=== PATIENT | male | born 1950 | race Caucasian/White ===

== ENCOUNTER 2021-02-24 16:08 | Observation (INO) | payer OTHER ==
--- OUTSIDE RECORDS SUMMARY | 2021-02-24 16:12 | XMS REPORT | Continuity of Care Document ---
:1950 Author Organization [facility] t Address [address] [place] [address] Care Team Providers Name Role Phone Unavailable Unavailable Unavailable Problems This patient has no known problems. Allergies, Adverse Reactions, Alerts This patient has no known allergies or adverse reactions. Medications This patient has no known medications. Procedures This patient has no known procedures. Encounters Start End Encounter Admission Attending Care Care Encounter Source Date/Time Date/Time Type Type Clinicians Facility Department ID 2020 2020 Outpatient [facility] [id number] [facility]00[facility]00 [facility] 2020 2020 Outpatient [facility] [id number] [facility] 2020-10-30 2020-10-30 Outpatient [facility] [id number] [facility] 2020-10-30 2020-10-30 Outpatient [facility] [id number] [facility] 2020-10-23 2020-10-23 Outpatient [facility] [id number] [facility] 2020-10-05 2020-10-05 Outpatient [facility] [id number] [facility] 2020-10-04 2020-10-04 Outpatient [facility] [id number] [facility]00 [facility] 2020-09-26 2020-09-26 Outpatient [facility] [id number] [facility]00 [facility] Results This patient has no known results.
[2021-02-24] MEDS ORDERED: LIDOCAINE 1% MPF 5 ML VIAL ONE (17:34)
--- NOTE | 2021-02-24 17:54 | EDPHYS ---
Physician Documentation [facility] Name: Maco House III Age: 70 yrs Sex: Male : 1950 Arrival Date: 02/24/2021 Time: 16:10 Bed 23 Private MD: ED Physician Joselin Baptiste HPI: 02/24 17:41 This 70 yrs old Male presents to ER via Ambulatory with complaints of sp3 Syncope, Doesn't Feel Right. 17:45 70-year-old male with no significant past medical history presents for chief complaint sp3 syncope which occurred just prior to arrival. Patient states that he was having sex with his significant other and subsequent to that he laid in bed for a few minutes and subsequently got up and started having near syncope symptoms and an urge to use the restroom so he started walking towards the restroom and while inside as he was in the process of sitting on the commode had a full syncopal episode falling forward and striking the corner of the wall on the right side of his eye/face and falling to the floor. Patient's significant other was within immediate range and came in for immediate assistance. Upon arrival she states that he was slowly "coming to". Patient reports no headache, neck pain, chest pain, shortness of breath, fever, URI symptoms, known sick contacts, nausea, vomiting, diarrhea, abdominal pain, numbness, tingling, weakness, or any other ROS at this time.. Historical: - Allergies: 16:30 No Known Allergies; aa5 - Home Meds: 16:30 None [Active]; aa5 - PMHx: 16:30 Back pain; aa5 - PSHx: 16:30 eye; shoulder; aa5 16:31 Back sx; aa5 - Immunization history:: Client reports receiving the 2nd dose of the Covid vaccine. - Social history:: Smoking status: Patient denies any tobacco usage or history of. ROS: 17:47 Constitutional: Negative for fever, chills, and weight loss, Eyes: Negative for injury, sp3 pain, redness, and discharge, Neck: Negative for injury, pain, and swelling, Cardiovascular: Negative for chest pain, palpitations, and edema, Respiratory: Negative for shortness of breath, cough, wheezing, and pleuritic chest pain, Abdomen/GI: Negative for abdominal pain, nausea, vomiting, diarrhea, and constipation, Back: Negative for injury and pain, MS/Extremity: Negative for injury and deformity, Skin: Negative for injury, rash, and discoloration, Allergy/Immunology: Negative for hives, rash, and allergies, Endocrine: Negative for neck swelling, polydipsia, polyuria, polyphagia, and marked weight changes. 17:47 Neuro: Positive for loss of consciousness, syncope, Negative for altered mental status, dizziness, headache, hearing loss, speech changes, tingling, visual changes, weakness. Exam: 17:47 Constitutional: This is a well developed, well nourished patient who is awake, alert, sp3 and in no acute distress. Eyes: Pupils equal round and reactive to light, extra-ocular motions intact. Lids and lashes normal. Conjunctiva and sclera are non-icteric and not injected. Cornea within normal limits. Periorbital areas with no swelling, redness, or edema. ENT: Nares patent. No nasal discharge, no septal abnormalities noted. External auditory canals are clear. Oropharynx with no redness, swelling, or masses, exudates, or evidence of obstruction, uvula midline. Mucous membranes moist. Neck: Trachea midline, no thyromegaly or masses palpated, and no cervical lymphadenopathy. Supple, full range of motion without nuchal rigidity, or vertebral point tenderness. No Meningismus. Chest/axilla: Normal chest wall appearance and motion. Nontender with no deformity. No lesions are appreciated. Cardiovascular: Regular rate and rhythm with a normal S1 and S2. No gallops, murmurs, or rubs. Normal PMI, no JVD. No pulse deficits. Respiratory: Lungs have equal breath sounds bilaterally, clear to auscultation and percussion. No rales, rhonchi or wheezes noted. No increased work of breathing, no retractions or nasal flaring. Abdomen/GI: Soft, non-tender, with normal bowel sounds. No distension or tympany. No guarding or rebound. No evidence of tenderness throughout. Back: No spinal tenderness. No costovertebral tenderness. Full range of motion. Skin: Warm, dry with normal turgor. Normal color with no rashes, no lesions, and no evidence of cellulitis. MS/ Extremity: Pulses equal, no cyanosis. Neurovascular intact. Full, normal range of motion. Neuro: Awake and alert, GCS 15, oriented to person, place, time, and situation. Cranial nerves II-XII grossly intact. Motor strength 5/5 in all extremities. Sensory grossly intact. Cerebellar exam normal. Normal gait. Psych: Awake, alert, with orientation to person, place and time. Behavior, mood, and affect are within normal limits. 17:47 Head/face: Noted is a laceration(s), that is linear, See laceration note and procedure completed by physician regulatory assistant.. 17:48 ECG was reviewed by the Attending Physician. EKG demonstrates normal sinus rhythm at 81 sp3 bpm with normal intervals, RSR in lead III, normal axis, nonspecific ST/T changes diffuse. No signs of acute MA or STEMI noted. Vital Signs: 16:26 BP 145 / 91; Pulse 80; Resp 18 S; Temp 98.6(TE); Pulse Ox 96% on R/A; Weight 97.07 kg aa5 (R); Height 6 ft. 0 in. (182.88 cm) (R); 17:15 BP 166 / 97; Pulse 74; Resp 15; Pulse Ox 100% ; rb3 18:06 BP 138 / 80; Pulse 72; Resp 14; Pulse Ox 98% ; rb3 16:26 Body Mass Index 29.02 (97.07 kg, 182.88 cm) aa5 Laceration: 17:29 Wound Repair of 1cm ( 0.4in ) subcutaneous laceration to lateral aspect of right pm1 supraorbital ridge. Linear shaped.. Distal neuro/vascular/tendon intact. Anesthesia: Local anesthetic administered with 1 mls of 1% lidocaine. Wound prep: Extensive cleansing with hibiclenz by me, Wound irrigation with saline by me, Wound explored extensively, Copious irrigation. Skin closed with 5 6-0 Prolene using simple sutures and sterile technique. Dressed with Neosporin. Patient tolerated well. MDM: 16:48 Patient medically screened. sp3 17:50 Data reviewed: vital signs, nurses notes, EKG. ED course: Patient is stable currently. sp3 Unknown if his sexual activity was related to his syncope. Patient also has carotid plaques which will need to be addressed. I will order ultrasound as well. Do not believe he is having an acute coronary syndrome, CVA, sepsis, or any other critical finding at this time. Will admit for ACS rule out and possible further evaluation by the inpatient medical team. Patient will be placed in observation status. His laceration has been repaired. All questions have been answered and medicine team has been notified.. 02/24 16:48 Order name: Basic Metabolic Panel [facility] 02/24 16:48 Order name: CBC with Diff [facility] 02/24 16:48 Order name: Protime (+inr) [facility] 02/24 16:48 Order name: Ptt, Activated [facility] 02/24 16:48 Order name: Troponin (emerg Dept Use Only) [facility] 02/24 16:48 Order name: Hepatic Function [facility] 02/24 18:27 Order name: Basic Metabolic Panel; Complete Time: 18:50 EDMS 02/24 18:27 Order name: Liver (Hepatic) Function; Complete Time: 18:50 EDMS 02/24 18:42 Order name: CBC with Automated Diff; Complete Time: 18:50 EDMS 02/24 18:44 Order name: Protime (+INR); Complete Time: 18:50 EDMS 02/24 18:44 Order name: PTT, Activated Partial Thromb; Complete Time: 18:50 EDMS 02/24 23:16 Order name: Troponin I EDMS 02/25 03:11 Order name: CBC with Automated Diff [facility] 02/25 03:29 Order name: Comprehensive Metabolic Panel [facility] 02/24 16:48 Order name: CT Stroke Brain w/o Contrast [facility] 02/24 16:48 Order name: Stroke CXR 1 View [facility] 02/24 16:48 Order name: EKG; Complete Time: 21:17 [facility] 02/24 16:48 Order name: Cardiac monitoring; Complete Time: 17:35 [facility] 02/24 16:48 Order name: EKG - Nurse/Tech; Complete Time: 17:34 [facility] 02/24 16:48 Order name: IV Saline Lock; Complete Time: 18:03 [facility] 02/24 16:48 Order name: Labs collected and sent; Complete Time: 18:03 [facility] 02/24 16:48 Order name: NPO; Complete Time: 18:03 [facility] 02/24 16:48 Order name: O2 Per Protocol; Complete Time: 17:35 [facility] 02/24 17:57 Order name: CT; Complete Time: 18:50 EDMS 02/24 18:18 Order name: RAD; Complete Time: 18:50 EDMS 02/25 03:29 Order name: Lipid Profile [facility] 02/25 03:29 Order name: T4 Free [facility] 02/25 03:29 Order name: Thyroid Stimulating Hormone [facility] 02/25 10:06 Order name: US [facility] 02/24 16:48 Order name: O2 Sat Monitoring; Complete Time: 17:35 sp3 Administered Medications: 19:37 Drug: Tylenol 1000 mg Route: PO; jb4 Disposition: 02/26 08:59 Co-signature as Attending Physician, Joselin Baptiste MD I agree with the assessment and sp3 plan of care. Disposition Summary: 02/24/21 17:53 Hospitalization Ordered Hospitalization Status: Observation sp3 Condition: Stable sp3 Problem: new sp3 Symptoms: are resolved sp3 Bed/Room Type: Standard sp3 Provider: Theodore Johnson(02/24/21 17:54) la1 Location: [facility] ER HOLD(02/24/21 21:20) cg Room Assignment: ERHOLD-(02/24/21 21:20) cg Diagnosis - Carotid sinus syncope sp3 - Facial Laceration/ Laceration without foreign body of cheek and temporomandibular sp3 area Forms: - Medication Reconciliation Form sp3 - SBAR form sp3 Signatures: Dispatcher [employer] [facility] Jeni Garcia RN RN aa5 Pranay Santoyo, POLICE LIEUTENANT PATROL-C POLICE LIEUTENANT PATROL-Cla1 Lolita Nelson RN RN cg Jorge Davidson, BLEACH CHLORINATOR BLEACH CHLORINATOR pm1 Alpesh Brady RN RN jb4 Joselin Baptiste MD MD sp3 Pranay Santoyo la3 Corrections: (The following items were deleted from the chart) 02/24 17:54 17:53 Pranay Santoyo sp3 la1 21:20 17:53 Telemetry/MedSurg (observation) sp3 cg 21:20 17:53 sp3 cg
--- NOTE | 2021-02-24 17:54 | ER ---
Nurse's Notes [facility] Name: Maco House III Age: 70 yrs Sex: Male : 1950 Arrival Date: 02/24/2021 Time: 16:10 Bed 23 Private MD: Diagnosis: Carotid sinus syncope;Facial Laceration/ Laceration without foreign body of cheek and temporomandibular area Presentation: 02/24 16:26 Chief complaint: Patient states: "I was dreaming that I was taking my blood pressure aa5 and when I woke up I felt like something was really wrong, I felt like I needed to go to the restroom and all I remember was me turning around to sit on the toilet and nothing after that". Pt reports syncopal episode. Pt's found pt on bathroom floor and states "he was just waking up when I found him and very confused". Pt currently A\\T\\O x 4. Pt reports "feeling tired and anxious". Coronavirus screen: Client presents with at least one sign or symptom that may indicate coronavirus-19. Ebola Screen: Patient negative for fever greater than or equal to 101.5 degrees Fahrenheit, and additional compatible Ebola Virus Disease symptoms. Initial Sepsis Screen: Does the patient meet any 2 criteria? No. Patient's initial sepsis screen is negative. Does the patient have a suspected source of infection? No. Patient's initial sepsis screen is negative. Risk Assessment: Do you want to hurt yourself or someone else? Patient reports no desire to harm self or others. Onset of symptoms was February 24, 2021. 16:26 Method Of Arrival: Ambulatory aa5 16:26 Acuity: SANTOS 3 aa5 Historical: - Allergies: 16:30 No Known Allergies; aa5 - Home Meds: 16:30 None [Active]; aa5 - PMHx: 16:30 Back pain; aa5 - PSHx: 16:30 eye; shoulder; aa5 16:31 Back sx; aa5 - Immunization history:: Client reports receiving the 2nd dose of the Covid vaccine. - Social history:: Smoking status: Patient denies any tobacco usage or history of. Screenin:35 Abuse screen: Denies threats or abuse. Nutritional screening: No deficits noted. rb3 Tuberculosis screening: No symptoms or risk factors identified. Fall Risk Fall in past 12 months (25 points). No secondary diagnosis (0 pts). IV access (20 points). Ambulatory Aid- None/Bed Rest/Nurse Assist (0 pts). Gait- Normal/Bed Rest/Wheelchair (0 pts) Mental Status- Oriented to own ability (0 pts). Total Arredondo Fall Scale indicates High Risk Score (45 or more points). Fall prevention measures have been instituted. Side Rails Up X 2 Placed Close to Nursing Station 1:1 Attendant Assigned Frequent Obs/Assessments Occuring Family Present and informed to notify staff if the need to leave the bedside As available patient and family educated on Fall Prevention Program and Strategies. Assessment: 16:35 General: Pt. reports that him and his had just made love and when he went to the [facility] bathroom he felt like something was wrong and he passed out. He hit the right side of his face on the wall. Right eye has a small cut, bleeding is controlled and it is bruised.. Pain: Denies pain. Neuro: Level of Consciousness is awake, alert, obeys commands, Oriented to person, place, time, situation, Reports a syncopal episode Denies blurred vision headache. Cardiovascular: Patient's skin is warm and dry. Rhythm is regular. Respiratory: Airway is patent Respiratory effort is even, unlabored, Respiratory pattern is regular, symmetrical. GI: No signs and/or symptoms were reported involving the gastrointestinal system. : No signs and/or symptoms were reported regarding the genitourinary system. Derm: Bruising that is dark purple, on right eye. Musculoskeletal: Range of motion: intact in all extremities. 17:40 Reassessment: Patient appears in no apparent distress at this time. No changes from [facility] previously documented assessment. 18:06 Reassessment: Patient appears in no apparent distress at this time. Patient and/or rb3 family updated on plan of care and expected duration. Pain level reassessed. Patient is alert, oriented x 3, equal unlabored respirations, skin warm/dry/pink. Patient denies pain at this time. 19:00 Reassessment: Patient appears in no apparent distress at this time. Patient and/or jb4 family updated on plan of care and expected duration. Pain level reassessed. Patient is alert, oriented x 3, equal unlabored respirations, skin warm/dry/pink. Vital Signs: 16:26 BP 145 / 91; Pulse 80; Resp 18 S; Temp 98.6(TE); Pulse Ox 96% on R/A; Weight 97.07 kg aa5 (R); Height 6 ft. 0 in. (182.88 cm) (R); 17:15 BP 166 / 97; Pulse 74; Resp 15; Pulse Ox 100% ; rb3 18:06 BP 138 / 80; Pulse 72; Resp 14; Pulse Ox 98% ; rb3 16:26 Body Mass Index 29.02 (97.07 kg, 182.88 cm) aa5 ED Course: 16:10 Patient arrived in ED. as 16:24 Arm band placed on. aa5 16:30 Triage completed. aa5 16:33 EKG completed in triage. Results shown to MD. aa5 16:35 Patient has correct armband on for positive identification. Bed in low position. Call rb3 light in reach. Side rails up X 1. court monitor on. Pulse ox on. NIBP on. 16:36 Amena Hernandez, TU is Primary Nurse. rb3 16:37 Joselin Baptiste MD is Attending Physician. sp3 17:53 Pranay Santoyo FNP-C is Hospitalizing Provider. sp3 17:54 Theodore Johnson DO is Hospitalizing Provider. la1 18:00 Inserted saline lock: 20 gauge in right antecubital area, using aseptic technique. rb3 Blood collected. 19:00 No provider procedures requiring assistance completed. Patient admitted, IV remains in jb4 place. Administered Medications: 19:37 Drug: Tylenol 1000 mg Route: PO; jb4 Outcome: 17:53 Decision to Hospitalize by Provider. sp3 19:00 Admitted to ER Hold. Please see [facility] for further documentation. jb4 19:00 Condition: stable 19:00 Discharge instructions given to patient, Instructed on the need for admit, Demonstrated understanding of instructions. 02/25 18:02 Patient left the ED. [facility] Signatures: Nell Angel Audri, RN RN aa5 Pranay Santoyo FNP-C SAND TECHNICIAN-Cla1 Alpesh Brady RN RN jb4 Amena Hernandez RN RN rb3 Joselin Baptiste MD MD sp3 Bautista, Christopher, RN RN ch5
--- NOTE | 2021-02-24 17:57 | RAD REPORT ---
EXAM DESCRIPTION: CT - Ct Stroke Brain Wo Cont - 02/24/2021 5:52 pm CLINICAL HISTORY: syncope COMPARISON: No comparisons TECHNIQUE: All CT scans are performed using dose optimization technique as appropriate and may inclu de automated exposure control or mA/KV adjustment according to patient size. FINDINGS: No intracranial hemorrhage, hydrocephalus or extra-axial fluid collection.No areas of brai n edema or evidence of midline shift. The paranasal sinuses and mastoids are clear. The calvarium is intact. IMPRESSION: No acute intracranial abnormality.
[2021-02-24 18:10] LABS: Absolute Lymphocytes (CBC) 2.9 K/uL (0.7-4.9); Basophils % 0.9 % (0-1.3); Hematocrit 40.9 % (39.6-49.0); Lymphocytes % 40.2 % (15.3-44.8); MPV 7.4 fL (7.6-11.3); RBC Red Blood Cell Count 4.37 M/uL (4.33-5.43)
[2021-02-24 18:17] LABS: Protime INR 0.91
--- NOTE | 2021-02-24 18:18 | RAD REPORT ---
EXAM DESCRIPTION: RAD - STROKE CXR 1 VIEW - 02/24/2021 6:08 pm CLINICAL HISTORY: syncope COMPARISON: CHEST SINGLE VIEW dated 04/24/2014 FINDINGS: No acute cardiopulmonary disease. No edema or evidence of pneumonia. Heart size is normal. Plate and screw fixation of a left clavicle fracture. Visualized upper abdomen is unremarkable. IMPRESSION: No acute cardiopulmonary disease.
[2021-02-24 18:26] LABS: Bilirubin Direct 0.1 mg/dL (0-0.2); Bilirubin Total 0.5 mg/dL (0.2-1.0); Potassium 4.3 mmol/L (3.5-5.1); Protein, Total 7.8 g/dL (6.4-8.2)
--- NOTE | 2021-02-24 19:27 | P.HP ---
Certification for Inpatient Patient admitted to: Observation With expected LOS: <2 Midnights Patient will require the following post-hospital care: None Practitioner: I am a practitioner with admitting privileges, knowledge of patient current condition, hospital course, and medical plan of care. Services: Services provided to patient in accordance with Admission requirements found in Title 42 Section 412.3 of the Code of Federal Regulations Patient History Date of Service: 02/24/21 Reason for admission: Syncope History of Present Illness: Patient is a 70-year-old white male who experienced a syncopal episode at approximately 3 PM this afternoon. Patient had had intercourse with his at approximately 230 and gone to sleep. While asleep he had a vivid dream that he was having a problem with his blood pressure and that he was short of breath. He woke feeling short of breath and anxious. He was not experiencing any chest pain. Patient attempted to get to the bathroom. He was concerned that he was going to soil himself. He sat on the toilet and immediately had a syncopal episode. He fell forward blue bruising right side of his face. He quickly recovered and at that point had no shortness of breath and no further symptoms. Immediately following the incident he noted that his blood pressure was elevated at 177/117 and it was heart rate was 70. Pt has laceration to the right corner of the right eye which was repaired in the emergency department, sutures in place. Allergies No Known Allergies Allergy (Unverified 06/12/17 19:27) Home medications list reviewed: No (Patient has no home medications) - Past Medical/Surgical History Diabetic: No -: Prior syncopal episode 4 years ago, negative work-up -: Repair of L1 fracture following accident -: Repair of left collarbone x4, plate inserted 1973. -: Left thumb surgery following injury. Psychosocial/ Personal History: Patient is retired. He lives at home with his . - Family History Father -: Heart disease (Father had a heart murmur but which resulted in replacement of the aortic valve at the age of 74.) Mother -: Diabetes Brother -: Heart disease (His youngest brother has a history of bundle branch block and of stent placement.) - Social History Smoking Status: Never smoker Alcohol use: Yes CD- Drugs: No Caffeine use: Yes Place of Residence: Home Review of Systems 10-point ROS is otherwise unremarkable General: Unremarkable Eyes: Unremarkable ENT: Unremarkable Respiratory: Unremarkable Cardiovascular: Other (Syncope) Gastrointestinal: Unremarkable Musculoskeletal: Unremarkable Integumentary: Bruising, Other (Bruising right face small laceration repaired in corner of right eye) Neurological: Unremarkable Physical Examination - Physical Exam General: Alert, In no apparent distress, Oriented x3 HEENT: Other (Contusion right face small laceration corner of right eye repaired in ER.) Neck: Supple Respiratory: Clear to auscultation bilaterally, Normal air movement Cardiovascular: No edema, Systolic murmur Capillary refill: <2 Seconds Gastrointestinal: Soft and benign, Non-distended Musculoskeletal: No swelling, No contractures Integumentary: No rashes Neurological: Normal speech, Normal strength at 5/5 x4 extr, Cranial nerves 3-12 intact External genitalia: Deferred Rectal: Deferred - Studies Laboratory Data (last 24 hrs) 02/24/21 18:00: Sodium 138, Potassium 4.3, BUN 16, Creatinine 0.94, Glucose 94, Total Bilirubin 0.5, AST 21, ALT 39, Alkaline Phosphatase 71 02/24/21 18:00: PT 10.5, INR 0.91, APTT 25.9 02/24/21 18:00: WBC 7.10, Hgb 13.8, Hct 40.9, Plt Count 270 Assessment and Plan - Plan Assessment: Syncope Small facial laceration status post repair in the emergency department Plan: Syncope: Patient is admitted for observation. He is on continuous telemetry. Initial CT scan of the head is negative. Labs are pending. Will trend troponin. Echo, carotid US ordered. Will obtain orthostatic VS. ASA, betablocker/stating ordered. Lipid panel/throid with morning labs. Small facial laceration status post repair in the emergency department: Patient will need to have sutures removed in 5 to 7 days by PCP. DVT PPx: Lovenox 40 mg CODE STATUS: Full code Discharge Plan: Home Plan to discharge in: 24 Hours - Advance Directives Does patient have a Living Will: No Does patient have a Durable POA for Healthcare: No - Code Status/Comfort Care Code Status Assessed: Yes (Full code) Critical Care: No Time Spent Managing Pts Care (In Minutes): 55
[2021-02-24] MEDS ORDERED: ACETAMINOPHEN 500 MG TAB ONE (19:53)
[2021-02-24] MEDS: NA CHLORIDE 0.9% 1,000 ML IV SCH (20:00)
[2021-02-24 20:30] VITALS: BMI 29.0
[2021-02-24] MEDS ORDERED: NA CHLORIDE 0.9% 1,000 ML ONE (20:35)
[2021-02-24] MEDS ORDERED: METOPROLOL TAR 25 MG TAB ONE (20:59)
[2021-02-24] MEDS ORDERED: ATORVASTATIN 40 MG TAB PO SCH (21:00)
[2021-02-24] MEDS ORDERED: METOPROLOL TAR 25 MG TAB PO ONE (21:00)
[2021-02-25 03:01] LABS: Absolute Lymphocytes (CBC) 3.8 K/uL (0.7-4.9); Basophils % 0.9 % (0-1.3); Hematocrit 42.7 % (39.6-49.0); Lymphocytes % 48.8 % (15.3-44.8); RBC Red Blood Cell Count 4.51 M/uL (4.33-5.43)
[2021-02-25 03:29] LABS: Bilirubin Total 0.5 mg/dL (0.2-1.0); Potassium 3.8 mmol/L (3.5-5.1); Thyroid Stimulating Hormone 2.11 uIU/mL (0.360-3.740)
[2021-02-25] MEDS ORDERED: ACETAMINOPHEN 500 MG TAB PO PRN (05:07)
[2021-02-25] MEDS: NA CHLORIDE 0.9% 1,000 ML IV SCH (05:15)
[2021-02-25] MEDS ORDERED: NA CHLORIDE 0.9% 1,000 ML ONE (05:37)
[2021-02-25] MEDS ORDERED: METOPROLOL TAR 25 MG TAB ONE (05:37)
[2021-02-25] MEDS ORDERED: ACETAMINOPHEN 500 MG TAB ONE (05:38)
[2021-02-25] MEDS ORDERED: METOPROLOL TAR 25 MG TAB PO SCH (06:00)
[2021-02-25 08:03] VITALS: TEMP 98
[2021-02-25] MEDS ORDERED: ASPIRIN 81 MG CHEWABLE TABLET ONE (08:15)
[2021-02-25] MEDS ORDERED: ENOXAPARIN 40 MG/0.4 ML SQ ONE (08:16)
[2021-02-25] MEDS ORDERED: POTASSIUM CL SA 10 MEQ TAB PO ONE ×2 (08:16→09:00)
[2021-02-25] MEDS ORDERED: ASPIRIN EC 81 MG TAB PO SCH (09:00)
[2021-02-25] MEDS ORDERED: ENOXAPARIN 40 MG/0.4 ML SQ SCH (09:00)
--- NOTE | 2021-02-25 10:06 | RAD REPORT ---
EXAM DESCRIPTION: USCarotid Artery Bilateral02/24/2021 10:01 pm CLINICAL HISTORY: syncope COMPARISON: None FINDINGS: The velocity of the right internal carotid artery equals 103 cm/sec. The right ICA/CCA rat io.8 The velocity of the left internal carotid artery equals 92 cm/sec. The left ICA/CCA ratio 1.2 Mild plaque is present within the carotid arteries. The vertebral arteries demonstrate antegrade flow IMPRESSION: Mild plaque within the carotid arteries without evidence of a hemodynamically significan t stenosis NASCET criteria used. Mild 0-49% stenosis Moderate 50-69% stenosis Severe 70-99% stenosis
[2021-02-25 16:30] VITALS: BP 113/81
[2021-02-25 18:11] VITALS: O2SAT 98
--- NOTE | 2021-02-26 11:00 | EKG ---
Test Date: 2021-02-24 Test Time: 16:32:44 Drilling Foreman: CARI MEASUREMENT RESULTS: Intervals: Rate: 81 [place]: 146 QRSD: 92 QT: 360 QTc: 418 [place]: P: 52 [place]: 146 QRS: 31 T: 27 INTERPRETIVE STATEMENTS: Normal sinus rhythm Normal ECG Compared to ECG 04/24/2014 18:45:59 No significant changes Electronically Signed On 02-26-21 10:54:33 CDT by Rock Babcock
--- NOTE | 2021-02-26 14:31 | CON ---
Date of Consultation: 02/25/2021 Admitted on 02/24/2021 for syncope. History Of Present Illness: Mr. House is a 70-year-old white male, very physically active. No sign ificant past medical history. He has had a negative cardiac workup in the past. He came in with a s yncopal episode after a heavy day of exertion and physical activities. His episode happened while he was standing up. He actually got syncopal, but before it happened, he has had episode of what sound ed like shortness of breath. No chest pain. Denied any nausea, vomiting, diaphoresis, PND, orthopne a, pedal edema, or palpitation. So far his workup has been extensive and has been negative and he wa nts to go home. Has been hydrated well. Past Medical History: Negative. Allergies: NONE. Medications: At home include no cardiac medicine. Review of Systems: Negative. Social History: Negative. Family History: Negative. Physical Examination: Vital Signs: Stable. Afebrile. HEENT: Negative. Neck: Supple with no bruit. Chest: Clear. Cardiac: Revealed a regular rhythm and rate. No murmurs, gallops, or rubs. Abdomen: Benign. Extremities: Revealed no clubbing, cyanosis, or edema. Diagnostic Data: All normal. Impression And Plan: Syncope most likely secondary to orthostatic hypotension. Nevertheless, this c ould be related to bradycardia. He has had an extensive cardiac workup in the past. I want him to g et a seven-day event monitor as an outpatient and see me, but he can go home. The case was discussed with Dr. Willis. SAMANTHA/BENI Voice ID: [id number] Report ID: [id number]
== END 2021-02-25 16:36 | disposition home or self-care (01) ==
LOC: ER 16:08 → ERHOLD 19:37
PROVIDERS: ADMIT Family Medicine; ATTEND Hospitalist
PROC: 0HQ1XZZ Repair Face Skin, External Approach (ICD-10-PCS; principal; 2021-02-25)
DX: R55 Syncope and collapse (principal); S01.81XA Laceration without foreign body of other part of head, initial encounter; W19.XXXA Unspecified fall, initial encounter; Y92.002 Bathroom of unspecified non-institutional (private) residence as the place of occurrence of the external cause; Z82.49 Family history of ischemic heart disease and other diseases of the circulatory system; Z83.3 Family history of diabetes mellitus
CPT/HCPCS: 93005; 85025 ×2; 80048; 36415; 85610; 80061; 80076; 85730; 84443; 84484; 84439; 80053; 70450; 71045; 93880; 99285; 12011; J1650; J7030 ×2; G0378 ×3

== ENCOUNTER 2023-12-27 08:26 | Emergency (ER) | payer OTHER ==
--- OUTSIDE RECORDS SUMMARY | 2023-12-27 08:29 | XMS REPORT | Continuity of Care Document ---
Author Name Unknown Address [address] [facility] [address] [place] [address] [facility] Address [address] [facility] [place] [address] Care Team Providers Care Aircraft Refueller Name Role Phone Lab, Adc Fam Pob I Attending Clinician Unavailab Keya Ortiz Attending Clinician KEYA AVELAR Attending Clinician Unavailable Doctor Unassigned, [place] Attending Clinician U navailable Payers Payer Name Policy Type Policy Number Effective Date Expirati on Date Source MEDICARE NOVIT[place] MB [id number] [facility] [id number] [facility] MEDICARE [place] MB [id number] [facility] MEDICARE [place] MB [id number] [facility] MEDICARE [place] MB [id number] [facility] MEDICARE [place] MB [id number] [facility] MEDICARE [place] MB [id number] [facility] MEDICARE [place] MB [id number] [facility] Problems Condition Name Condition Details Condition Category Status Onset Date Resolution Date Last Treatment Date Treating Clinician Comments Source Right lumbar radiculopa thy Right lumbar radiculopa thy Disease Active 07-05 00:00: 00 [facility] Lumbago Lumbago Disease Active 07-05 00:00: 00 [facility] Fall from roof Fall from roof Disease Active 2013-06 00:00: 00 [facility] Lower back pain Lower back pain Disease Active 2013-06 00:00: 00 [facility] Traumatic burst fracture of lumbar vertebra Traumatic burst fracture of lumbar vertebra Disease Active 2013-06 00:00: 00 Overview: L1, 20% loss of height, mild retropuls ion into canal [facility] Lumbar compressio n fracture Lumbar compressio n fracture Disease Active 2013-06 00:00: 00 [facility] 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 ne in male Problem [facility] High cholestero l High cholestero l Problem [facility] [id number] Vitamin D deficiency Problem [facility] [id number] Grief reaction with prolonged bereavemen t Problem [facility] [id number] Familial hyperchola nemia Problem [facility] [id number] Body mass index (BMI) of 31.0-31.9 in adult Problem [facility] [id number] Sleep disturbanc e Problem [facility] Allergies, Adverse Reactions, Alerts Allergy Name Allergy Type Status Severity Reaction(s) Onset Date Inactive Date Treating Clinician Comments Source NO KNOWN ALLERGIE S Drug Class Active [facility] Social History Social Habit Start Date Stop Date Quantity Comments Source History of Tobacco Use [facility] Sex Assigned At [facility] Exposure to SARS-CoV-2 (event) Yes [facility] Alcohol intake 2014-10-18 00:00:00 2014-10-18 00:00:00 [facility] Smoking Status Start Date Stop Date Source Never Smoker [facility] Medications Ordered Medication Name Filled Medication Name Start Date Stop Date Current Medication? Ordering Clinician Indication Dosage Frequency Signature (SIG) Comments Components Source Accu-check glucose monitor n/s Accu-check glucose monitor n/s 5-11 00:00: 00 No Accu-check glucose monitor n/s Blood Glucose Monitor System w/Device Blood Glucose Monitor System w/Device 4-16 00:00: 00 No BID Blood Glucose Monitor System w/Device EpiPen 2-Enrique 0.3 MG/0.3ML EpiPen 2-Enrique 0.3 MG/0.3ML 908 00:00: 00 No EpiPen 2-Enrique 0.3 MG/0.3ML Vitamin B12 (Cyanocobal thompson) Vitamin B12 (Cyanocobal thompson) 805 00:00: 00 No 1000ug [facility] FEXOFENADIN E HCL (VINAY ORAL) 10-18 13:46: 26 Yes Take by mouth. [facility] IBUPROFEN (ADVIL ORAL) 10-18 13:46: 26 Yes Take by mouth. [facility] ACETAMINOPH EN (TYLENOL 8 HOUR ORAL) 10-18 13:46: 26 Yes Take by mouth. [facility] traMADOL (ULTRAM) 50 mg tablet 08-24 00:00: 00 Yes [id number] 50mg Take 1 Tab by mouth 3 (three) times daily as needed for Pain (scale 4-6). [facility] traMADol HCl 50 MG traMADol HCl 50 MG No 1{table t_as_ne eded} QD traMADol HCl 50 MG Vitamin D3 25 MCG (1000 UT) Vitamin D3 25 MCG (1000 UT) No 1{capsu le} QD Vitamin D3 25 MCG (1000 UT) Magnesium 250 MG Magnesium 250 MG No 1{table t_with_ a_meal} QD Magnesium 250 MG Co Q 10 100 MG Co Q 10 100 MG No 2{capsu le_with _a_meal } QD Co Q 10 100 MG Aspirin 81 MG Aspirin 81 MG No 1{table t} QD Aspirin 81 MG Omeprazole 20 MG Omeprazole 20 MG No QD Omeprazole 20 MG Antacid 500 MG Antacid 500 MG No 1{table t} QD Antacid 500 MG Lancets - Lancets - No Lancets - Fish Oil 1200 MG Fish Oil 1200 MG No 1{capsu le} QD Fish Oil 1200 MG Ginkgo Biloba 120 MG Ginkgo Biloba 120 MG No Ginkgo Biloba 120 MG Vital Signs Vital Name Observation Time Observation Value Comments S rosalinda height 2021-07-31 10:00:00 71.5 [in_i] Comm on [facility] weight 2021-07-31 10:00:00 227 [lb_av] Comm on [facility] temperature 2021-07-31 10:00:00 98.6 [degF] Com mon [facility] bmi 2021-07-31 10:00:00 31.22 kg/m2 Comm on [facility] height 2020 10:45:00 71.5 [in_i] Comm on [facility] weight 2020 10:45:00 225.9 [lb_av] Co mmon [facility] temperature 2020 10:45:00 97.3 [degF] Com [facility] bmi 2020 10:45:00 31.06 kg/m2 Comm on [facility] oximetry 2020 10:45:00 95 % Commo n [facility] blood pressure systolic 2020 10:45:00 136 mm[Hg] [facility] blood pressure diastolic 2020 10:45:00 72 mm[Hg] Common [facility] temperature 2020 10:20:00 97.3 [degF] Com [facility] bmi 2020 10:20:00 31.06 kg/m2 Comm on [facility] oximetry 2020 10:20:00 95 % Commo [facility] respiratory rate 2020 10:20:00 18 /min Common [facility] blood pressure systolic 2020 10:20:00 136 mm[Hg] Common [facility] blood pressure diastolic 2020 10:20:00 72 mm[Hg] [facility] height 2020 10:20:00 71.5 [in_i] Comm on [facility] weight 2020 10:20:00 225.9 [lb_av] Co on [facility] height 2020-09-26 11:20:00 71.5 [in_i] Comm on [facility] weight 2020-09-26 11:20:00 230.6 [lb_av] [facility] 2020-09-26 11:20:00 97.3 [degF] Com mon [facility] bmi 2020-09-26 11:20:00 31.71 kg/m2 Comm on [facility] oximetry 2020-09-26 11:20:00 94 % Commo n [facility] respiratory rate 2020-09-26 11:20:00 17 /min [facility] blood pressure systolic 2020-09-26 11:20:00 135 mm[Hg] [facility] blood pressure diastolic 2020-09-26 11:20:00 70 mm[Hg] [facility] Encounters Start Date/Time End Date/Time Encounter Type Admission Type Attending [facility] Care Facility Care Department Encounter ID Source 2021-07-17 12:48:55 Outpatient [facility]C STL[facility] [id number] [facility] 2023-12-11 00:00:00 2023-12-11 00:00:00 (TEL) [facility]LMLC STLMLC [id number] [facility] 2021-07-31 00:00:00 2021-07-31 00:00:00 OFFICE VISIT EST PT LEVEL 3 [facility] STL[facility]C [id number] [facility] 2021-07-29 00:00:00 2021-07-29 00:00:00 (TEL) STLMLC STLMLC [id number] [facility] 2020 00:00:00 2020 00:00:00 SUB ANNUAL [facility] VISIT STLMLC STLMLC [id number] [facility] 2020 00:00:00 2020 00:00:00 OFFICE VISIT ESTAB PT LEVEL 4 [facility]LMLC STLMLC [id number] [facility] 2020-10-30 00:00:00 2020-10-30 00:00:00 (TEL) STLMLC STLMLC [id number] [facility] 2020-10-30 00:00:00 2020-10-30 00:00:00 (TEL) STLMLC STLMLC [id number] [facility] 2020-10-23 00:00:00 2020-10-23 00:00:00 (TEL) STLMLC STLMLC [id number] [facility] 2020-10-05 00:00:00 2020-10-05 00:00:00 (TEL) STLMLC STLMLC [id number] [facility] 2020-10-04 00:00:00 2020-10-04 00:00:00 (TEL) STLMLC STLMLC [id number] [facility] 2020-09-26 00:00:00 2020-09-26 00:00:00 OFFICE VISIT ESTAB PT LEVEL 4 STLMLC STLMLC [id number] [facility] 2020-06-28 13:09:38 2020-06-28 13:29:38 Laboratory Only Lab, Adc Fam Pob Keya Akers [facility] Office [facility] One [id number] [facility] 2020-06-28 13:00:00 2020-06-28 13:00:00 Outpatient KEYA LANDIN [facility] [id number] [facility] 2020-06-28 00:00:00 2020-06-28 00:00:00 Letter (Out) Doctor Unassigned, [place] [facility] [id number] [facility]
[2023-12-27 09:07] LABS: Absolute Basophils 0.1 K/uL (0-0.5); Absolute Eosinophils 0.1 K/uL (0-0.5); Absolute Monocytes 0.8 K/uL (0.1-1.3); Absolute Neutrophil 4.1 K/uL (1.8-8.0); Basophils % 0.7 % (0-1.3); Eosinophils % 1.9 % (0-4.4); Hematocrit 37.5 % (39.6-49.0); Hemoglobin 12.7 g/dL (13.6-17.9); Lymphocytes % 28.6 % (15.3-44.8); MCH 32.1 pg (27.0-35.0); MCHC 33.8 g/dL (32.0-36.0); MCV 95.2 fL (80-100); MPV 7.8 fL (7.6-11.3); Monocytes % 11.8 % (3.3-12.3); Nucleated Red Blood Cells % 0.1 % (0-0); Platelets 240 thou/uL (152-406); RBC Red Blood Cell Count 3.94 M/uL (4.33-5.43); Red Cell Distribution Width 13.3 % (12.1-15.2)
[2023-12-27] MEDS ORDERED: TDAP (DIPHTH,PERTUSS(ACELL),TET VAC) 0.5 ML VIAL IMVAC ONE (09:11)
[2023-12-27] MEDS ORDERED: FENTANYL CITR 100 MCG/2 ML ONE ×2 (09:11→12:15)
[2023-12-27 09:21] LABS: Anion Gap 8.5 mEq/L (5.0-15.0); Potassium 3.5 mEq/L (3.5-5.1)
--- NOTE | 2023-12-27 09:36 | RAD REPORT ---
EXAM DESCRIPTION: CT - Head C Spine Mpr Wo Con - 12/27/2023 9:20 am CLINICAL HISTORY: Head and neck injury status post fall. Head and neck pain COMPARISON: None. TECHNIQUE: Computed axial tomography of the head and cervical spine was obtained. Sagittal and coronal reconstruction was performed. All CT scans are performed using dose optimization technique as appropriate and may include automated exposure control or mA/KV adjustment according to patient size. FINDINGS: An intracranial bleed is not seen. The ventricles are normal in caliber. No significant hypodensity within the brain. An extra-axial fluid collection is not noted. Fluid within the visualized sinuses and mastoids is not seen. A small right frontal bone osteoma. Bon y structure extending off lateral aspect left maxillary sinus incompletely evaluated on this exam. It may represent an osteochondroma A cervical fracture is not visualized. No dislocation is noted. Slight anterior subluxation C2-C3 and C3-C4. Loss of normal lordosis of cervical spine may secondary muscle spasm. Marked spondylosis involves distal cervical spine IMPRESSION: No acute intracranial abnormality is seen. A cervical fracture is not visualized. If the patient continues to have symptoms to suggest intracranial /spinal cord pathology then MRI wou ld be recommended
--- NOTE | 2023-12-27 09:42 | RAD REPORT ---
EXAM DESCRIPTION: RAD - Ankle Right 3 View - 12/27/2023 9:21 am CLINICAL HISTORY: Right ankle pain FINDINGS: Trimalleolar comminuted fractures involve the ankle. Marked displacement of the fracture f ragments. Dislocation present. Angulation present at the fracture sites
--- NOTE | 2023-12-27 09:43 | RAD REPORT ---
EXAM DESCRIPTION: RAD - Shoulder Right 2 View - 12/27/2023 9:21 am CLINICAL HISTORY: Right shoulder pain FINDINGS: No fracture or dislocation is seen.
--- NOTE | 2023-12-27 09:44 | RAD REPORT ---
EXAM DESCRIPTION: Bruce Single View12/27/2023 9:21 am CLINICAL HISTORY: Chest pain COMPARISON: 2013 FINDINGS: The lungs appear clear of acute infiltrate. The heart is normal size. Plate and screws affix old left clavicle fracture IMPRESSION: No acute abnormalities displayed
[2023-12-27] MEDS ORDERED: KETAMINE HCL IN 0.9 % NACL 50 MG/5 ML SYRINGE IV ONE (09:45)
[2023-12-27] MEDS ORDERED: NA CHLORIDE 0.9% 1,000 ML ONE (10:08)
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
--- NOTE | 2023-12-27 10:48 | EDPHYS ---
Physician Documentation [facility] Name: Maco House III Age: 73 yrs Sex: Male : 1950 Arrival Date: 12/27/2023 Time: 08:26 Bed 6 Private MD: ED Physician Elton Reno HPI: 12/26 08:38 This 73 yrs old Male presents to ER via Ambulatory with complaints of Fall Injury, Leg ec2 Pain, Arm Pain. 08:38 Patient arrives today for evaluation of right ankle and right shoulder pain. States ec2 that he was working on a ladder subsequently a branch fell and hit him on the head as well as the right ankle. Reports no LOC, no blood thinners, complaining of pain at the right ankle. Also complaining of right shoulder pain.. Historical: - Allergies: 08:33 No Known Allergies; kc6 - Home Meds: 08:33 None [Active]; kc6 - PMHx: 08:33 Back pain; kc6 - PSHx: 08:33 back sx; eye; Shoulder; kc6 - Immunization history: Last tetanus immunization: unknown. - Infectious Disease History:: Denies. - Social history:: Smoking status: Patient denies any tobacco usage or history of. ROS: 08:38 Constitutional: as per hpi ec2 Exam: 08:38 Constitutional: GEN: No acute distress HEENT: -Head: no deformities -Eyes: EOMI CV: ec2 regular rate LUNGS: no respiratory distress ABD: non-tender SKIN: Abrasions to the nasal bridge, right forehead MSK: No C/T/L spine deformities RUE w/o bony deformity, TTP to the right shoulder LUE w/o bony deformity RLE with deformity to the right ankle, intact distal neurovascular status. LLE w/o bony deformity NEURO: moves all extremities equally, GCS 15 (E4, V5, M6) Vital Signs: 08:28 BP 147 / 92; Pulse 72; Resp 16 S; Pulse Ox 100% on R/A; Weight 104.33 kg (R); Height 6 kc6 ft. 0 in. (R); Pain 5/10; 10:46 BP 152 / 100; Pulse 77; Resp 18 S; Pulse Ox 100% on 3 lpm NC; kc6 08:28 Body Mass Index 31.19 (104.33 kg, 182.88 cm) kc6 08:28 Pain Scale: Adult kc6 [place] Coma Score: 08:28 Eye Response: spontaneous(4). Motor Response: obeys commands(6). Verbal Response: kc6 oriented(5). Total: 15. Trauma Score (Adult): 08:28 Eye Response: spontaneous(1); Verbal Response: oriented(1); Motor Response: obeys kc6 commands(2); Systolic BP: > 89 mm Hg(4); Respiratory Rate: 10 to 29 per min(4); Jose Score: 15; Trauma Score: 12 MDM: 08:32 Patient medically screened. ec2 08:38 Data reviewed: vital signs. ED course: Patient arrives today for evaluation of right ec2 ankle and shoulder pain after a fall from a ladder while working and cutting a branch. Examination remarkable for MSK findings as above. Will obtain CT scan of the head and C-spine given the patient's age as well as distracting injury, will obtain radiographs of the chest, shoulder, ankle. Differential diagnose include intracranial brain bleed, C-spine fracture, ankle fracture.. 10:01 ED course: Metabolic profile reassuring, chest x-ray shows no acute intrathoracic ec2 process, shoulder x-ray shows no bony fracture, ankle x-ray independently reviewed and interpreted by me, shows comminuted trimalleolar fracture. Will attempt reduction with ketamine and conscious sedation. . 10:38 ED course: Attempted bedside reduction with ketamine, patient was significantly ec2 unstable trimalleolar fracture, I manipulated as best I could and and subsequently I applied the splint. Repeat radiograph shows persistent marked displacement and fracture. I will transfer the patient for an unstable fracture. . 07 08:38 Order name: Basic Metabolic Panel; Complete Time: 10:00 ec2 12/26 08:38 Order name: CBC with Diff; Complete Time: 09:18 ec2 12/26 08:38 Order name: Type And Screen; Complete Time: 10:00 ec2 12/26 08:38 Order name: CXR XRAY; Complete Time: 10:00 ec2 12/26 08:38 Order name: Shoulder Right (2 View) XRAY; Complete Time: 10:00 ec2 12/26 08:38 Order name: Ankle Right 3 View XRAY; Complete Time: 10:00 ec2 12/26 08:38 Order name: CT Head C Spine; Complete Time: 10:00 ec2 12/26 09:19 Order name: Pelvis; Complete Time: 11:15 EDMS 12/26 10:08 Order name: Ankle Right 3 View XRAY; Complete Time: 11:15 ec2 12/26 08:38 Order name: Labs collected and sent; Complete Time: 09:00 ec2 12/26 09:22 Order name: Conscious Sedation; Complete Time: 09:58 ec2 Administered Medications: 09:41 Drug: fentaNYL (PF) IVP 25 mcg IVP once Route: IVP; Site: left forearm; kc6 10:47 Follow up: Response: No adverse reaction; Pain is unchanged, physician notified; RASS: kc6 Alert and Calm (0) 09:41 Drug: Boostrix Tdap IM 0.5 ml IM once; as a single dose Route: IM; Site: right deltoid; kc6 10:47 Follow up: Response: No adverse reaction kc6 10:19 Drug: Ketamine IVP 1 mg/kg IVP once Route: IVP; Site: left forearm; kc6 10:47 Follow up: Response: No adverse reaction; Pain is decreased; RASS: Moderate sedation kc6 (-3) 12:17 Drug: fentaNYL (PF) IVP 50 mcg IVP once Route: IVP; Site: left forearm; nj1 Disposition Summary: 12/27/23 10:47 Transfer Ordered Notes: Transfer Location: [facility] ec2 Reason: Higher level of care ec2 Condition: Stable ec2 Problem: new ec2 Symptoms: are unchanged ec2 Accepting Physician: transferring doc(12/27/23 12:27) nj1 Diagnosis - Unstable Ankle Fracture, right ec2 Forms: - Medication Reconciliation Form ec2 - SBAR form ec2 Signatures: Dispatcher [employer] EDKellie Bertrand Kaitlyn, RN RN kc6 Dea Dugan RN RN nj1 Elton Reno MD MD ec2 Corrections: (The following items were deleted from the chart) 08:38 08:38 BASIC METABOLIC PANEL+C.LAB.BRZ ordered. EDMS EDMS 08:39 08:38 CBC+H.LAB.BRZ ordered. EDMS EDMS 08:39 08:38 TYPE AND SCREEN+BB.LAB.BRZ ordered. EDMS EDMS 08:39 08:39 Head C Spine MPR Wo Con+CT.RAD.BRZ ordered. EDMS EDMS 10:08 10:08 Ankle Right 3 View+RAD.RAD.BRZ ordered. EDMS EDMS 10:42 10:38 ED course: Attempted bedside reduction with ketamine, patient was significantly ec2 unstable trimalleolar fracture, I manipulated as best I could and and subsequently I applied the splint. Repeat radiograph shows persistent marked displacement and fracture.. ec2 12:12 10:47 transferring doc ec2 eb 12:27 12:12 transferring doc eb nj1
--- NOTE | 2023-12-27 11:02 | RAD REPORT ---
EXAM DESCRIPTION: RAD - Ankle Right 3 View - 12/27/2023 10:51 am CLINICAL HISTORY: Right ankle pain FINDINGS: Splint immobilizes right ankle Comminuted trimalleolar fracture again demonstrated Ankle dislocation probably still present but in better alignment since prior exam
--- NOTE | 2023-12-27 11:05 | RAD REPORT ---
EXAM DESCRIPTION: RAD - Pelvis - 12/27/2023 9:21 am CLINICAL HISTORY: Pelvic pain status post injury FINDINGS: No fracture or dislocation is seen. If the patient continues to have symptoms to suggest an occult fracture then MRI would be recommended
[2023-12-27 12:30] VITALS: BP 152/100; O2SAT 100
== END 2023-12-27 12:27 | disposition short-term general hospital (02) ==
LOC: ER 08:26
DX: S82.851A Displaced trimalleolar fracture of right lower leg, initial encounter for closed fracture (principal); W11.XXXA Fall on and from ladder, initial encounter; Y93.H2 Activity, gardening and landscaping; Y92.009 Unspecified place in unspecified non-institutional (private) residence as the place of occurrence of the external cause
CPT/HCPCS: 80048; 85025; 36415; 86900; 86850; 86901; 70450; 72125; 71045; 72170; 73030; 73610 ×2; 96375; 96372; 96374; 99285; J3010 ×2; J7030

== ENCOUNTER 2024-06-26 20:20 | Emergency (ER) | payer OTHER ==
[2024-06-26] MEDS ORDERED: LIDOCAINE 1% MPF 5 ML VIAL ONE (20:59)
[2024-06-26] MEDS ORDERED: TDAP (DIPHTH,PERTUSS(ACELL),TET VAC) 0.5 ML VIAL IMVAC ONE (20:59)
--- NOTE | 2024-06-26 21:43 | EDPHYS ---
Physician Documentation [facility] Name: Maco House III Age: 73 yrs Sex: Male : 1950 Arrival Date: 06/26/2024 Time: 20:20 Bed 9 Private MD: [facility] ED Physician Bennie Moss HPI: 06/26 22:33 This 73 yrs old Unknown Male presents to ER via Ambulatory with complaints of rt Laceration To Hand. 22:33 Patient presents to the ED with laceration to the right hand. Patient was moving rt plantars when he tripped, falling with the side of it cutting in between his thumb and second finger. The patient denies significant pain. Unclear when his last tetanus immunization was. Denies of acute complaints, symptoms are mild severity, no other aggravating elevating factors.. Historical: - Allergies: 20:46 No Known Allergies; ha1 - PMHx: 20:46 Back pain; ha1 - PSHx: 20:46 back sx; Shoulder; ha1 - Immunization history:: Adult Immunizations up to date, Last tetanus immunization: up to date. - Infectious Disease History:: Denies. - Social history:: Smoking status: Patient denies any tobacco usage or history of. - Family history:: not pertinent. ROS: 22:33 Constitutional: Negative for fever, chills, and weight loss, Neuro: Negative for rt headache, weakness, numbness, tingling, and seizure, 22:33 MS/extremity: Positive for laceration, Negative for pain, 22:33 Skin: Positive for laceration(s), Exam: 22:33 Constitutional: This is a well developed, well nourished patient who is awake, alert, rt and in no acute distress. Neuro: Awake and alert, GCS 15, oriented to person, place, time, and situation. Cranial nerves II-XII grossly intact. Motor strength 5/5 in all extremities. Sensory grossly intact. Cerebellar exam normal. Normal gait. Psych: Awake, alert, with orientation to person, place and time. Behavior, mood, and affect are within normal limits. 22:33 Musculoskeletal/extremity: 3 cm laceration at the webspace in between the first and second digits on the right hand, in a V shape. No active bleeding, the muscle does not appear to be violated. No neurovascular compromise. No contamination.. Vital Signs: 20:30 BP 168 / 85; Pulse 85; Resp 18 S; Temp 98.1(T); Pulse Ox 100% on R/A; Weight 101.6 kg; ha1 Height 6 ft. 0 in. ; 21:50 BP 150 / 80; Pulse 80; Resp 18; Pulse Ox 100% ; br2 20:30 Body Mass Index 30.38 (101.60 kg, 182.88 cm) ha1 Laceration: 22:33 Wound Repair of 3cm ( 1.2in ) subcutaneous laceration to Right first web space. Linear rt shaped.. Distal neuro/vascular/tendon intact. Anesthesia: Local anesthetic administered with 2 mls of 1% lidocaine. Wound prep: Copious irrigation. Skin closed with 6 4-0 Prolene using simple sutures and sterile technique. Dressed with 4x4's. Patient tolerated well. MDM: 20:40 Medical Screening Exam initiated rt 22:33 Differential diagnosis: superficial laceration. Data reviewed: vital signs, nurses rt notes. Test considered but Not performed: X-ray: No deformities, significant pain, low suspicion for fracture, x-rays not indicated. Counseling: I had a detailed discussion with the patient and/or guardian regarding the historical points, exam findings, and any diagnostic results supporting the discharge/admit diagnosis, the need for outpatient follow up. Response to treatment: the patient's symptoms have markedly improved after treatment. 06/26 20:47 Order name: Gloves, Sterile; Complete Time: 21:06 rt 06/26 20:47 Order name: Setup Suture Tray; Complete Time: 21:06 rt 06/26 20:47 Order name: Wound Care; Complete Time: 21:06 rt Administered Medications: 21:06 Drug: Boostrix Tdap IM 0.5 ml IM once; as a single dose Route: IM; Site: right deltoid; br2 21:30 Follow up: Response: No adverse reaction br2 21:24 Drug: Lidocaine Infiltration (1 %) 5 ml 5 ml Infiltration once; to bedside Volume: 5 br2 ml; Route: Infiltration; 22:00 Follow up: Response: No adverse reaction br2 Disposition Summary: 06/26/24 21:43 Discharge Ordered Notes: Location: Home rt Problem: new rt Symptoms: have improved rt Condition: Stable rt Diagnosis - Laceration to right hand rt Followup: rt - With: Private Physician - When: 10 - 14 days - Reason: Staple/Suture removal Discharge Instructions: - Discharge Summary Sheet rt - Laceration Care, Adult rt Forms: - Medication Reconciliation Form rt - Antibiotic Education rt - Prescription Opioid Use rt - Patient Portal Instructions rt - Leadership Thank You Letter rt Signatures: Michelle Pham RN RN ha1 Bennie Moss MD MD rt Angela Trent RN RN br2
--- NOTE | 2024-06-26 21:43 | ER ---
Nurse's Notes [facility] Name: Maco House III Age: 73 yrs Sex: Male : 1950 Arrival Date: 06/26/2024 Time: 20:20 Bed 9 Private MD: Damián Baptiste Diagnosis: Laceration to right hand Presentation: 06/26 20:30 Chief complaint: Patient states: LACERATION TO THE RIGHT HAND WHEN MOVING SOME PLANTS . ha1 20:30 Coronavirus screen: Vaccine status: Patient reports being unvaccinated. Ebola Screen: ha1 No symptoms or risks identified at this time. Complicating Factors: There are no complicating factors for this patient. Initial Sepsis Screen: Does the patient meet any 2 criteria? No. Patient's initial sepsis screen is negative. Does the patient have a suspected source of infection? No. Patient's initial sepsis screen is negative. Risk Assessment: Do you want to hurt yourself or someone else? Patient reports no desire to harm self or others. Onset of symptoms was June 26, 2024. 20:30 Method Of Arrival: Ambulatory ha1 20:30 Acuity: SANTOS 3 ha1 Historical: - Allergies: 20:46 No Known Allergies; ha1 - PMHx: 20:46 Back pain; ha1 - PSHx: 20:46 back sx; Shoulder; ha1 - Immunization history:: Adult Immunizations up to date, Last tetanus immunization: up to date. - Infectious Disease History:: Denies. - Social history:: Smoking status: Patient denies any tobacco usage or history of. - Family history:: not pertinent. Screenin:40 [facility] ED Fall Risk Assessment (Adult) History of falling in the last 3 months, br2 including since admission No falls in past 3 months (0 pts) Confusion or Disorientation No (0 pts) Intoxicated or Sedated No (0 pts) Impaired Gait No (0 pts) Mobility Assist Device Used No (0 pt) Altered Elimination No (0 pt) Score/Fall Risk Level 0 - 2 = Low Risk Oriented to surroundings. Abuse screen: Denies threats or abuse. Denies injuries from another. Nutritional screening: No deficits noted. Tuberculosis screening: No symptoms or risk factors identified. Assessment: 20:40 Reassessment: Patient and/or family updated on plan of care and expected duration. Pain br2 level reassessed. Patient is alert, oriented x 3, equal unlabored respirations, skin warm/dry/pink. General: Appears in no apparent distress. comfortable, Behavior is calm, cooperative. Pain: Complains of pain in Right first web space Pain does not radiate. Pain currently is 1 out of 10 on a pain scale. Neuro: [place] Agitation-Sedation Scale (RASS): 0 - Alert and Calm Level of Consciousness is awake, alert, obeys commands, Oriented to person, place, time. Musculoskeletal: Range of motion: intact in all extremities. 21:55 Injury Description: Laceration is clean. br2 Vital Signs: 20:30 BP 168 / 85; Pulse 85; Resp 18 S; Temp 98.1(T); Pulse Ox 100% on R/A; Weight 101.6 kg; ha1 Height 6 ft. 0 in. ; 21:50 BP 150 / 80; Pulse 80; Resp 18; Pulse Ox 100% ; br2 20:30 Body Mass Index 30.38 (101.60 kg, 182.88 cm) ha1 ED Course: 20:23 Patient arrived in ED. gm2 20:24 Damián Baptiste DO is Private Physician. gm2 20:24 Bennie Moss MD is Attending Physician. rt 20:40 Patient has correct armband on for positive identification. Bed in low position. Call br2 light in reach. Side rails up X 1. Provided Education on: PLAN OF CARE. 20:40 Assist provider with laceration repair Set up tray. Wound care: was cleaned with with br2 NORMAL SALINE. 20:46 Triage completed. ha1 20:52 Angela Trent RN is Primary Nurse. br2 21:55 Patient did not have IV access during this emergency room visit. br2 Administered Medications: 21:06 Drug: Boostrix Tdap IM 0.5 ml IM once; as a single dose Route: IM; Site: right deltoid; br2 21:30 Follow up: Response: No adverse reaction br2 21:24 Drug: Lidocaine Infiltration (1 %) 5 ml 5 ml Infiltration once; to bedside Volume: 5 br2 ml; Route: Infiltration; 22:00 Follow up: Response: No adverse reaction br2 Medication: 21:12 Vaccine Information Statement (VIS) provided today. Questions and/or concerns br2 addressed. VIS edition date: January 25, 2021. Outcome: 21:43 Discharge ordered by . rt 21:55 Discharged to home ambulatory, br2 21:55 Condition: good 21:55 Discharge instructions given to patient, Instructed on discharge instructions, follow up and referral plans. Demonstrated understanding of instructions, follow-up care, wound care, 21:56 Patient left the ED. br2 Signatures: Michelle Pham RN RN ha1 Bennie Moss MD MD rt Sophia Moses 2 Angela Trent RN RN br2 Corrections: (The following items were deleted from the chart) 23:20 23:19 Patient did not have IV access during this emergency room visit. br2 br2
[2024-06-26 22:01] VITALS: BP 168/85; TEMP 98.1; O2SAT 100
== END 2024-06-26 21:56 | disposition home or self-care (01) ==
LOC: ER 20:20
DX: S61.411A Laceration without foreign body of right hand, initial encounter (principal)
CPT/HCPCS: 96372; 99284; 12002; J2003